=== PATIENT | female | born 1990 | race Caucasian/White ===

== ENCOUNTER → 2017-07-10 23:02 | Observation (INO) ==
[2017-07-10 21:18] VITALS: BP 125/75
[2017-07-10 21:43] LABS: Amphetamine Screen,Urine Negative ng/mL (Cutoff=1000); Barbiturate Screen,Urine Negative ng/mL (Cutoff=200); Benzodiazepines Screen,Urine Negative ng/mL (Cutoff=200); Cannabinoid Screen,Urine Negative ng/mL (Cutoff = 50); Cocaine Screen,Urine Negative ng/mL (Cutoff= 300); Opiate Screen,Urine Negative ng/mL (Cutoff=300); Phencyclidine Screen,Urine Negative ng/mL (Cutoff=25)
--- NOTE | 2017-07-11 07:09 | Discharge Summary ---
Date of Encounter: 07/10/17 Time of Encounter: 22:50 - Discharge Diagnosis (1) 37 weeks gestation of Priority: Primary Status: Acute Comments: Patient admitted for labor evaluation (2) Non-reactive NST (non-stress test) Priority: Secondary Status: Acute Comments: baseline 125 bpm moderate variability +15x15 accels no decels noted. - Discharge Medications Home Medications: Multi Tablet 1 tab PO DAILY 06/09/17 [History] Ranitidine HCl 06/09/17 [History] Allergies/Adverse Reactions: 3 Allergy/AdvReac Type Severity Reaction Status Date / Time No Known Allergies Allergy Verified 08/09/15 15:45 Data Procedures and tests throughout hospitalization: Laboratory Tests 07/10/17 21:19 Urine Opiates Screen Negative Ur Barbiturates Screen Negative Ur Phencyclidine Scrn Negative Ur Amphetamines Screen Negative U Benzodiazepines Scrn Negative Urine Cocaine Screen Negative U Marijuana (THC) Screen Negative Labs on day of discharge: Labs from last 24 hours 07/10/17 21:19 Urine Opiates Screen Negative Ur Barbiturates Screen Negative Ur Phencyclidine Scrn Negative Ur Amphetamines Screen Negative U Benzodiazepines Scrn Negative Urine Cocaine Screen Negative U Marijuana (THC) Screen Negative Date of admission: 07/10/17 20:51 Discharging clinician: Stacie Stafford Anticipated date of discharge: 07/11/17 - Patient Status Disposition: Home, Self-Care Condition: Good - Discharge Instructions Additional Instructions: LABOR AND DELIVERY DISCHARGE INSTRUCTIONS Signs and Symptoms to be Reported to your Doctor Immediately: * Sudden gush, continuous or intermittent lead of fluid from vagina (note the time of gush and color of fluid) * Onset of bright red vaginal bleeding with or without pain (if you had a vaginal exam during this visit you may notice some dark red spotting. This is normal.) * Contractions that are 5 minutes apart (from the beginning of one contraction to the beginning of the next) and last 45-60 seonds; contractions that you can no longer walk, talk or laugh through. * A change in the baby's activity. This could be an increase or decrease in activity. * Severe headache which does not go away with tylenol. * Sudden swelling in the face, hands, arms and/or legs. * Upper abdominal pain - sometimes associated with heartburn or nausea and is not relieved by Maalox, Mylanta or Tums. * Kick Counts __ One hour after a meal, lay down on one side in a quiet place. Count the number of time the baby moves during an hour. 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 Patient was dilated 280/-2. After observation no cervical change was made. Patient was discharged home with reactive nst. Time Attestation: Total time spent providing and/or coordinating discharge services: Time Spent: Less than 30 minutes Exam - Constitutional Vitals: Temp Pulse Resp BP 98.1 F 90 16 125/75 07/10/17 21:07 07/10/17 21:07 07/10/17 21:07 07/10/17 21:07 - Other Additional findings: Patient seen and assessed by RN. - VTE Reasons for not Prescribing Prophylaxis: Treatment not Indicated - Low risk for VTE
== END | disposition home or self-care (01) ==
LOC: 1NENULAB
PROVIDERS: ADMIT Obstetrics & Gynecology; ATTEND Obstetrics & Gynecology

== ENCOUNTER 2017-07-21 07:50 | Inpatient (IN) ==
[2017-07-21] MEDS ORDERED: Metoclopramide 10 MG/2 ML VIAL IVP PRN (08:23)
[2017-07-21] MEDS ORDERED: *HR* Nalbuphine 20 MG/ML AMPUL IVP PRN (08:23)
[2017-07-21] MEDS ORDERED: Naloxone 0.4 MG/ML INJ IVP PRN (08:23)
[2017-07-21] MEDS ORDERED: Famotidine 20 MG/2 ML VIAL IVP PRN (08:23)
[2017-07-21] MEDS ORDERED: miSOPROStol 25 MCG TABLET VG SCH (09:00)
--- NOTE | 2017-07-21 09:02 | OB/GYN History & Physical ---
Addendum entered and electronically signed by Sergio Gar DO 07/21/17 11 :39: Blood Type: A+ Original Note: Date of Encounter: 07/21/17 Time of Encounter: 08:45 Assessment and Plan (1) 39 weeks gestation of Current visit: No Status: Acute (2) Elective induction of labor planned Current visit: No Status: Acute Patient will be admitted for elective induction - IV fluids. - NST assessment. - Cytotec. - Nubain for pain control. History of Present Illness Chief complaint: Inductino of labor HPI: Ms. Mccallum is a 27 year old female at 39 1/7 wks gestation that presents for induction of labor. She admits to good movement. She denies any vaginal fluid leakage or bleeding. She denies contractions, headaches, vision changes, chest pain, nausea, vomiting, fever, chill,s dysuria, or diarrhea. GBS: negative HIV Ag/Ab: non-reactive T. Pallidum Ab: negative Rubella Ab: positive Varicella Ab: positive HepBSAg: Non-reactive (01/15/17) All other labs normal. Past Med Surg Social Fam HX - Past Medical History Medical history: no medical history Psychiatric history: no psych history - Past Surgical History Surgical History: other - Social History Smoking Status: Current every day smoker Packs per day: 1/2 Smokeless Tobacco Status: No Alcohol use: none Drug use: none - Family History Mother History Unknown: Yes Adopted: No Family Member Ethnicity: Non- Living Status: Still Living Hx Family Cardiac Disorders: Yes (HTN) Hx Family Respiratory Disorders: No Hx Family Cancer: No Hx Family GI Disorders: No Hx Family Endocrine Disorder: No Hx Family Neuromuscular Disorders: No Hx Family Neurologic Disorders: No Hx Family HEENT Disorders: No Hx Family Autoimmune Disorders: No Obstetrical History - Pregnancies : 4 Para: 2 Term: 2 : 0 Ab's: 1 Livin Medications and Allergies Multi Tablet 1 tab PO DAILY 06/09/17 [History] Ranitidine HCl 150 mg PO HS 06/09/17 [History] 3 Allergy/AdvReac Type Severity Reaction Status Date / Time No Known Allergies Allergy Verified 08/09/15 15:45 Exam - Constitutional Constitutional: well developed, well nourished, no acute distress, average body habitus - Lungs Respiratory exam: CTAB - Cardiovascular Cardiovascular exam: RRR, +S1, +S2 - Abdomen Abdomen: Present: bowel sounds normal, gravid, non tender - Extremities Extremities exam: full ROM, normal capillary refill, normal inspection, radial pulses palpable and symmetrical Deep Tendon Reflex Grade: 2+ Normal - Cervix Dilation: 2 Effacement: 80 Results Result Diagrams: 07/21/17 08:55 All other labs normal. - VTE Reasons for not Prescribing Prophylaxis: Treatment not Indicated - Low risk for VTE - Attending Attestation Gume Mayorga I examined this patient and my medical decision-making was reviewed with the Resident Physician. I agree with the documented findings, disposition and treatment plan as described except to the extent set forth below.
[2017-07-21] MEDS: Ringers Solution, Lactated 1,000 ML IVC SCH ×2 (09:10→14:05)
[2017-07-21 09:12] LABS: Basophils % 0.4 %; Eosinophils # 0.1 K/mcL (0.0-0.6); Eosinophils % 1.2 %; Hematocrit 35.9 % (35.3-44.9); Hemoglobin 12.2 g/dL (11.5-15.4); Immature Granulocytes % 1.1 % (0-4); Immature Platelets 8.9 % (1.1-6.1); Lymphocytes # 1.1 K/mcL (0.6-4.6); Lymphocytes % 9.7 %; Mean Corpuscular Hemoglobin 29.5 pg (28.0-33.3); Mean Corpuscular Volume 86.9 fL (83.0-100.0); Monocytes # 1.1 K/mcL (0.0-1.3); Monocytes % 9.9 %; Neutrophils # 8.8 K/mcL (1.6-8.9); Platelet Count 199 K/mcL (140-400); Red Blood Count 4.13 M/mcL (3.82-4.97); Red Cell Distribution Width 13.2 % (11.5-14.5); Segmented Neutrophils % 77.7 %
[2017-07-21 09:20] LABS: Amphetamine Screen,Urine Negative ng/mL (Cutoff=1000); Barbiturate Screen,Urine Negative ng/mL (Cutoff=200); Benzodiazepines Screen,Urine Negative ng/mL (Cutoff=200); Cannabinoid Screen,Urine Negative ng/mL (Cutoff = 50); Cocaine Screen,Urine Negative ng/mL (Cutoff= 300); Opiate Screen,Urine Negative ng/mL (Cutoff=300); Phencyclidine Screen,Urine Negative ng/mL (Cutoff=25)
--- NOTE | 2017-07-21 13:09 | Anesthesia Evaluation PreOp ---
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 PICKER History: Denies Any Significant HX Other Medical History: Denies Any Significant HX Anesthesia History: No Prior Anesthetic Complications, Past Anesthesia (right hand, loki[) : Yes (, 39 weeks) Alcohol Use: none Drug use: none Medications and Allergies Multi Tablet 1 tab PO DAILY 06/09/17 [History] Ranitidine HCl 150 mg PO HS 06/09/17 [History] 3 Allergy/AdvReac Type Severity Reaction Status Date / Time No Known Allergies Allergy Verified 08/09/15 15:45 - Meds/Allergy Pre-op Review Medications Reviewed: Yes Allergies Reviewed: Yes Beta Blockers on Current Med List: No Anesthesia Results - Labs 07/21/17 08:55 Anesthesia Exam Height: 64 Weight: 72 - HEENT Pupil (Motor): Pupils equal Mallampati: II Teeth: Normal Oral Opening: Greater than 3 - BEAD PICKER LOC: Oriented BEAD PICKER Motor: Normal RUE, Normal LUE, Normal RLE, Normal LLE, Normal Face BEAD PICKER Sensory: Normal: RUE, LUE, RLE, LLE, Face - Cardiac Rhythm: Regular Murmur: None JVD: No Carotid Bruit: No - Pulmonary Breath Sounds: bilateral Clear Respiratory Effort: Symmetrical Anesthesia Assess/Plan ASA Score: 2 Modified [place] Scale for Level of Consciousness: Cooperative, oriented, and tranquil Anesthetic Plan: Regional Monitoring Plan: Standard Monitors
--- NOTE | 2017-07-21 13:18 | OB Labor Progress Note ---
Date of Encounter: 07/21/17 Time of Encounter: 13:15 Labor Progress Note - Subjective Subjective: Patient is not really feeling the contractions this time not ready for an epidural at this time - Cervix Cervix: 4/80/-2 AROM clear fluid - Heart Tones Heart Tones: heart tones 140s reactive - [place]: Contractions every 2 minutes - Plan Plan: Continue current care and anticipate vaginal delivery
[2017-07-21] MEDS ORDERED: Oxytocin 20 units/ LR 1000 mL 20 UNIT/1,000 ML BAG IVC SCH ×2 (16:00→19:37)
[2017-07-21] MEDS ORDERED: Oxytocin 20 units/ LR 1000 mL 20 UNIT/1,000 ML BAG IVC ONE (16:00)
[2017-07-21] MEDS ORDERED: *HR* FentaNYL (PF) 100 MCG/2 ML VIAL ONE (16:19)
[2017-07-21] MEDS ORDERED: *HR* Ropivacaine/PF 0.2% 10 ML AMPUL ONE (16:19)
[2017-07-21] MEDS ORDERED: Epidural Premix (fent/bupiv) 110 ML EP ONE (16:20)
--- NOTE | 2017-07-21 17:40 | Anesthesia Procedures ---
Date of Encounter: 07/21/17 Time of Encounter: 16:25 Procedures: Anesthesia - Epidural/Spinal Patient ID/Chart reviewed: Yes Patient examined: Yes OB Eval: Contractions: Non-stressed pattern Consent Obtained: Yes Supplemental Oxygen: None/Room Air Site Prep: Aseptic Technique Patient position: upright Local Anesthetic: Lidocaine 1% Amount of Local Anesthetic used: 3 Touhy Needle Gauge: 18 Touhy Needle Depth (cm): 5 Catheter Depth at Skin (cm): 12 Test Dose (1.5% Lido + Epi): Volume given (mls): 3 Test Dose Result: Negative Loading Dose: Fentanyl (mcg): 100 Loading Dose: Other: ropivicaine 0.2% 6cc, nss 2cc Loading Dose Administered: Thru Touhy Needle Catheter Secured in Place: Tegaderm Interspace Used: L3-L4 Loss of Resistance (KARTHIK): Yes Blood: No CSF: No Paresthesia: No
--- NOTE | 2017-07-21 18:05 | OB/GYN Procedure Note ---
Delivery - Delivery Date: 07/21/17 Provider: Rafael Mayorga Intrapartum events: none Delivery induction: sherman, misoprostol Delivery augmentation: rupture of membranes Delivery monitor: external FHT, external uterine Anesthesia: epidural Estimated Blood Loss: 200 - Infant (s) A Delivery Date: 07/21/17 Delivery Time: 17:38 Presentation: vertex Position: SHAI Route of delivery: Gender: Female Viability: Viable Pounds: 7 Ounces: 7 Weight Gram: 3.375 kg at 1 minute: 8 at 5 mins: 9 Shoulder Dystocia: not encountered Specimens collected: cord blood Placenta: spontaneous Cord: 3 umbilical vessels - Repair Laceration Description: Periurethral (right) - Complications Delivery complications: none Delivery comments: Patient is a 27-year-old 4 para 2011 at 39-1/7 weeks who presented for induction of labor secondary to term with favorable cervix. Patient was 2 cm on admission we still placed a Sherman catheter and Cytotec. The patient 's Sherman had fallen out within an hour patient was artificially ruptured when she was 4 cm. Patient progressed appropriately became complete patient finally was completely pushed one time delivering a viable female in right occiput anterior presentation at 1738. There was no nuchal cord, no meconium, was bulb suctioned on the abdomen. Apgars were 8 at 1 minutes, 9 at 5 minutes, infant weight was 7 lbs. 7 oz. Placenta was sent to [facility] with three-vessel cord, national account manager Dr. Mayorga, data entry assistant Dr. Gar PGY1, anesthesia epidural, estimated blood loss 200 mL. Perineum cervix and vagina was visualized she had a right periurethral laceration repaired with 4-0 Vicryl in usual fashion. Cervix and vagina was visualized intact patient be observed one hour before being taken floor.
[2017-07-21] MEDS ORDERED: Acetaminophen 325 MG TABLET PO PRN (19:37)
[2017-07-21] MEDS ORDERED: Measles/Mumps/Rubella Vacc 0.5 ML VIAL SQ PRN (19:37)
[2017-07-21] MEDS ORDERED: Famotidine 20 MG TABLET PO SCH (21:00)
[2017-07-21] MEDS ORDERED: Methylergonovine 0.2 MG/ML AMPUL IM ONE (23:04)
[2017-07-22] MEDS: Ibuprofen 600 MG TABLET PO PRN ×2 (02:37→14:52)
[2017-07-22 06:31] LABS: Basophils # 0.1 K/mcL (0.0-0.2); Basophils % 0.4 %; Eosinophils # 0.1 K/mcL (0.0-0.6); Eosinophils % 0.8 %; Hemoglobin 7.8 g/dL (11.5-15.4); Immature Granulocytes % 1.1 % (0-4); Lymphocytes # 1.5 K/mcL (0.6-4.6); Lymphocytes % 10.7 %; Mean Corpuscular HGB Conc 33.9 g/dL (31.6-35.5); Mean Corpuscular Hemoglobin 29.8 pg (28.0-33.3); Mean Corpuscular Volume 87.8 fL (83.0-100.0); Mean Platelet Volume 11.2 fL (9.4-12.4); Monocytes # 1.5 K/mcL (0.0-1.3); Monocytes % 10.7 %; Neutrophils # 10.4 K/mcL (1.6-8.9); Platelet Count 145 K/mcL (140-400); Red Blood Count 2.62 M/mcL (3.82-4.97); Red Cell Distribution Width 13.1 % (11.5-14.5); Segmented Neutrophils % 76.3 %
[2017-07-22] MEDS ORDERED: miSOPROStol 100 MCG TABLET PO STA (06:43)
--- NOTE | 2017-07-22 07:28 | OB/GYN Progress Note ---
Date of Encounter: 07/22/17 Time of Encounter: 07:15 - Assessment and Plan (1) Status post vaginal delivery Current Visit: Yes Status: Acute (2) anemia Current Visit: Yes Status: Acute Patient was given methergine earlier and was put on pitocin. - Hgb has dropped from 12.2 to 7.8. She is currently asymptomatic. Continue to monitor. - Cytotec 200 mcg. - Pelvic ultrasound. - Increase ferrous sulfate to BID. - NPO diet. Subjective - Subjective Principal diagnosis: S/P vaginal delivery Interval history: When seen today, patient says that her vaginal bleeding has improved. She says the last time she was passing clots was 2-3 am in the morning. Since then she has had light bleeding. She admits to minor abdominal cramping. She currently denies any MAYES or vision changes. She is able to void and ambulate well. She denies any chest pain, shortness of breath, fever, chills, nausea, or vomiting. She is currently bottle feeding her baby. Patient reports: appetite normal, voiding normally, pain well controlled, ambulating normally [place]: doing well, bottle feeding Objective - Latest Vital Signs Latest vital signs: Vital Signs Temp Pulse Resp BP Pulse Ox 07/22/17 03:07 98.6 F 90 18 109/68 98 07/21/17 22:00 97.5 F L 81 16 99/61 98 07/21/17 21:03 97.7 F 86 16 108/70 99 07/21/17 19:53 98.7 F 80 16 113/74 99 Intake and Output 07/21/17 07/21/17 07/22/17 15:59 23:59 07:59 Intake Total 950 / 950 Output Total 200 / 200 700 / 700 Balance 950 / 950 -200 / -200 -700 / -700 Intake: IV Fluids 950 / 950 Lactated Ringers 1,000 ML @ 125 950 / 950 mls/hr IVC .Q8H DANIEL Rx#: [id number] Output: Urine 200 / 200 700 / 700 Other: Weight 72.5 kg - Exam Chest: Normal S1, Normal S2 Extremities: Present: normal. Absent: tenderness, edema Abdomen: Present: normal appearance, soft, tenderness (Minor tendress to deep palpation of lower quadrants. ) Uterus: Present: normal, firm - Labs Labs: Laboratory Results - last 24 hr 07/21/17 07/21/17 07/22/17 08:55 08:55 06:04 WBC 11.4 H 13.7 H RBC 4.13 2.62 L Hgb 12.2 7.8 L D Hct 35.9 23.0 L MCV 86.9 87.8 MCH 29.5 29.8 MCHC 34.0 33.9 RDW 13.2 13.1 Plt Count 199 145 MPV 11.0 11.2 Immature Gran % 1.1 1.1 Seg Neutrophils % 77.7 76.3 Lymphocytes % 9.7 10.7 Monocytes % 9.9 10.7 Eosinophils % 1.2 0.8 Basophils % 0.4 0.4 Neutrophils # 8.8 10.4 H Lymphocytes # 1.1 1.5 Monocytes # 1.1 1.5 H Eosinophils # 0.1 0.1 Basophils # 0.0 0.1 Immature Plt Fraction 8.9 H Urine Opiates Screen Negative Ur Barbiturates Screen Negative Ur Phencyclidine Scrn Negative Ur Amphetamines Screen Negative U Benzodiazepines Scrn Negative Urine Cocaine Screen Negative U Marijuana (THC) Screen Negative Attestation Statement - Attestation Attestation: I examined this patient and my medical decision-making was reviewed with the Resident Physician. I agree with the documented findings, disposition and treatment plan as described. Dede Ramírez CNM
[2017-07-22] MEDS ORDERED: Prenatal Vit/FA 1 EACH TABLET PO SCH (09:00)
[2017-07-22] MEDS ORDERED: PRENATAL MULTI PO SCH (09:00)
--- NOTE | 2017-07-22 10:55 | Anesthesia Evaluation PreOp ---
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: Denies Any Significant HX Other Medical History: Denies Any Significant HX Anesthesia History: No Prior Anesthetic Complications, Past Anesthesia (Hand Surgery, LEEP) : No Alcohol Use: none Drug use: none Medications and Allergies Multi Tablet 1 tab PO DAILY 06/09/17 [History] Ranitidine HCl 150 mg PO HS 06/09/17 [History] 3 Allergy/AdvReac Type Severity Reaction Status Date / Time No Known Allergies Allergy Verified 08/09/15 15:45 - Meds/Allergy Pre-op Review Medications Reviewed: Yes Allergies Reviewed: Yes Beta Blockers on Current Med List: No Anesthesia Results - Labs 07/22/17 06:04 Anesthesia Exam Last Vital Signs Temp 97.9 F 07/22/17 08:05 Pulse 80 07/22/17 08:05 Resp 16 07/22/17 08:05 BP 115/71 07/22/17 08:05 Pulse Ox 99 07/22/17 08:05 Height: 1.63m Weight: 72.5kg NPO (# of Hours): >8hr Pain Scale: 0 Pain Scale Used: Numeric (1 - 10) - HEENT Pupil (Motor): Pupils equal Mallampati: II Teeth: Normal Oral Opening: Greater than 3 - HOUSE CALLS NURSE LOC: Oriented HOUSE CALLS NURSE Motor: Normal RUE, Normal LUE, Normal RLE, Normal LLE, Normal Face HOUSE CALLS NURSE Sensory: Normal: RUE, LUE, RLE, LLE, Face - Cardiac Rhythm: Regular Murmur: None JVD: No Carotid Bruit: No - Pulmonary Breath Sounds: bilateral Clear Respiratory Effort: Symmetrical Anesthesia Assess/Plan ASA Score: 2 Modified [place] Scale for Level of Consciousness: Cooperative, oriented, and tranquil Anesthetic Plan: General Autologous Blood: No Monitoring Plan: Standard Monitors Recovery Plan: PACU
[2017-07-22] MEDS ORDERED: Ringers Solution, Lactated 1,000 ML ONE (11:34)
[2017-07-22] MEDS: Ringers Solution, Lactated 1,000 ML IVC SCH (11:43)
[2017-07-22] MEDS ORDERED: *HR* Propofol 200 MG/20 ML VIAL IVP ONE (12:10)
[2017-07-22] MEDS ORDERED: Ondansetron 4 MG/2 ML VIAL ONE (12:10)
[2017-07-22] MEDS ORDERED: *HR* FentaNYL (PF) 100 MCG/2 ML VIAL ONE (12:10)
[2017-07-22] MEDS ORDERED: Lidocaine -MPF 2% 5 ML VIAL ONE (12:10)
[2017-07-22] MEDS ORDERED: Dexamethasone 4 MG/ML VIAL ONE (12:10)
--- NOTE | 2017-07-22 13:19 | OB/GYN Procedure Note ---
Suction D&C - Diagnosis Date of procedure: 07/22/17 Pre-op diagnosis: other (Retained placenta, hemmorhage with anemia) Post-op diagnosis: same - Procedure Procedure: suction D&C Surgeon: Misael Beyer Anesthesia Type: General Estimated blood loss (cc): 150 Complications: none Fluids: crystalloid Specimen: uterine contents Disposition: PACU Narrative: Patient's 27-year-old female status post vaginal delivery 1730 last evening to experience significant vaginal bleeding with resultant anemia during the night. Currently her bleeding has slowed status post Methergine and Cytotec. She did have ultrasound which did show large mass effect and internal cervical os and thickened endometrium with fluid measuring approximately 8 cm suspicious for possible retained placenta tissue and clot. After discussing with patient options she did desire to proceed with suction dilation and evacuation. She is aware of operative risks and signed appropriate consent. Description of procedure: Patient was taken operating room where general normal anesthesia was administered. She is prepped draped in usual sterile fashion bladder was drained of clear urine. Cervix was grasped with single-tooth tenaculum. There was large amount of clot in the vagina and this was suctioned with 8 mm suction curet. Suction curet was then passed several times long the uterine cavity revealing clot in pinkish tissue suspicious for retained placenta. After passage of the suction curet multiple times gentle sharp curettage was performed with little residual tissue in the uterine hensley felt quite smooth. Suction curet was again passed several times revealing mostly just blood clot. There was minimal bleeding at this point tenaculum was removed uterus was massaged to firm area she was given Methergine 0.2 mg. She was taken to recovery room in stable condition. Then the procedure all sponge counts counts are correct patient was taken recovery in stable condition.
[2017-07-22 16:06] LABS: Hematocrit 23.8 % (35.3-44.9)
--- NOTE | 2017-07-22 16:59 | Anesthesia Evaluation Post Op ---
Date of Encounter: 07/22/17 Time of Encounter: 14:00 - Vital Signs Vital Signs: Vital Signs 07/22/17 13:18 07/22/17 13:33 07/22/17 13:49 Temperature 97.6 F 97.3 F L 98.1 F Pulse Rate 85 69 70 Respiratory Rate 10 11 10 Blood Pressure 107/75 118/61 105/72 O2 Sat by Pulse Oximetry 97 99 99 07/22/17 14:04 07/22/17 14:18 07/22/17 14:30 Temperature 97.8 F 98.0 F 97.9 F Pulse Rate 76 77 81 Respiratory Rate 10 15 16 Blood Pressure 106/68 102/71 106/67 O2 Sat by Pulse Oximetry 99 99 100 07/22/17 15:00 Temperature 98.0 F Pulse Rate 81 Respiratory Rate 16 Blood Pressure 110/68 O2 Sat by Pulse Oximetry 100 - Lungs Lungs: Clear Ascult./Percussion - Airway Airway: Non-obstructed - Cardiovascular Regular Rate - Mental Status Mental Status: Alert & Oriented, Answers Appropriately - Pain Pain Scale: 3 Pain Scale used: Numeric (1 - 10) - Nausea Vomiting Nausea Vomiting: Not Present - Hydration Hydration: Tolerates oral liquids, Ice chips - Discharge PostOp Status: Transfer Patient to floor Attestation: Patient meets criteria for floor transfer. Alert and communicative.
[2017-07-22 17:03] VITALS: BP 114/65
--- NOTE | 2017-07-22 18:54 | Discharge Summary ---
Date of Encounter: 07/22/17 Time of Encounter: 18:53 - Discharge Diagnosis (1) Retained placenta with hemorrhage, condition Priority: Secondary Status: Acute Comments: Doing well s/p suction d&c. Minimal pain or cramping. (2) S/P D&C (status post dilation and curettage) Priority: Secondary Status: Acute (3) anemia Priority: Secondary Status: Acute Comments: Will D/C home on iron. (4) Status post vaginal delivery Priority: Primary Status: Acute Comments: Doing well at present. Appropriate lochia and cramping. No s/sx's of infection. - Discharge Medications Home Medications: Multi Tablet 1 tab PO DAILY 06/09/17 [History] Ranitidine HCl 150 mg PO HS 06/09/17 [History] Allergies/Adverse Reactions: 3 Allergy/AdvReac Type Severity Reaction Status Date / Time No Known Allergies Allergy Verified 08/09/15 15:45 Data Procedures and tests throughout hospitalization: Laboratory Tests 07/21/17 07/21/17 07/22/17 08:55 08:55 06:04 WBC 11.4 H 13.7 H RBC 4.13 2.62 L Hgb 12.2 7.8 L D Hct 35.9 23.0 L MCV 86.9 87.8 MCH 29.5 29.8 MCHC 34.0 33.9 RDW 13.2 13.1 Plt Count 199 145 MPV 11.0 11.2 Immature Gran % 1.1 1.1 Seg Neutrophils % 77.7 76.3 Lymphocytes % 9.7 10.7 Monocytes % 9.9 10.7 Eosinophils % 1.2 0.8 Basophils % 0.4 0.4 Neutrophils # 8.8 10.4 H Lymphocytes # 1.1 1.5 Monocytes # 1.1 1.5 H Eosinophils # 0.1 0.1 Basophils # 0.0 0.1 Immature Plt Fraction 8.9 H Urine Opiates Screen Negative Ur Barbiturates Screen Negative Ur Phencyclidine Scrn Negative Ur Amphetamines Screen Negative U Benzodiazepines Scrn Negative Urine Cocaine Screen Negative U Marijuana (THC) Screen Negative 07/22/17 15:46 WBC RBC Hgb 8.0 L Hct 23.8 L MCV MCH MCHC RDW Plt Count MPV Immature Gran % Seg Neutrophils % Lymphocytes % Monocytes % Eosinophils % Basophils % Neutrophils # Lymphocytes # Monocytes # Eosinophils # Basophils # Immature Plt Fraction Urine Opiates Screen Ur Barbiturates Screen Ur Phencyclidine Scrn Ur Amphetamines Screen U Benzodiazepines Scrn Urine Cocaine Screen U Marijuana (THC) Screen Labs on day of discharge: Labs from last 24 hours 07/22/17 07/22/17 15:46 06:04 WBC 13.7 H RBC 2.62 L Hgb 8.0 L 7.8 L D Hct 23.8 L 23.0 L MCV 87.8 MCH 29.8 MCHC 33.9 RDW 13.1 Plt Count 145 MPV 11.2 Immature Gran % 1.1 Seg Neutrophils % 76.3 Lymphocytes % 10.7 Monocytes % 10.7 Eosinophils % 0.8 Basophils % 0.4 Neutrophils # 10.4 H Lymphocytes # 1.5 Monocytes # 1.5 H Eosinophils # 0.1 Basophils # 0.1 - Impressions ITS Impressions Pelvis Ultrasound 07/22/17 06:44 IMPRESSION: Markedly enlarged heterogeneous endometrium concerning for retained products of conception. There is indeterminate masslike enlargement of the lower uterine segment and cervix. Unremarkable appearance of the left ovary. Nonvisualization of the right ovary. D/ / Kp Sandy MD / Kp Sandy MD Interpreting Provider: Kp Sandy MD 07/22/17 18:52- Doing well, minimal bleeding s/p suction D&E. Desires discharge home. Date of admission: 07/21/17 07:50 Primary care physician: Gardenia Higginbotham CNP Consults: 07/21/17 19:37 Consult to Retail Field Supervisor [CONS] Routine Comment: Vaginal delivery, consult needed - Patient Status Disposition: Home, Self-Care Condition: Good Overall status at discharge: patient is progressing back to baseline - Discharge Instructions Instructions: Vaginal Delivery (DC) - Diet and Activity Activity: increase activity as tolerated Diet: advance to your usual diet Hospital Course QUILL WINDER Time Attestation: Total time spent providing and/or coordinating discharge services: Exam - Constitutional Vitals: Temp Pulse Resp BP Pulse Ox 97.9 F 80 16 114/65 99 07/22/17 16:00 07/22/17 16:00 07/22/17 16:00 07/22/17 16:00 07/22/17 16:00 General appearance IM: A&O X 3 - Respiratory Respiratory exam: Present: CTAB - Cardiovascular Cardiovascular exam IM: Present: RRR - GI/Abdominal GI/Abdominal exam IM: normal bowel sounds - Rectal Rectal exam: deferred - Uterus Position: 2 Fingers Below Umbilicus - Extremities Exam Extremities exam IM: Present: full ROM - Neurological Exam Neurological exam: oriented X3 - VTE Reasons for not Prescribing Prophylaxis: Treatment not Indicated - Low risk for VTE
--- NOTE | 2017-07-22 18:58 | Discharge Summary ---
Outpatient Proc Discharge Plan - Plan Instructions: Vaginal Delivery (DC) Prescriptions: Ibuprofen [Motrin] 600 mg PO Q6HR PRN #40 tablet PRN Reason: Cramping Docusate [Colace] 100 mg PO BID #60 capsule Ferrous Sulfate 325 mg PO BIDWM #60 tablet Home Medications: Multi Tablet 1 tab PO DAILY 06/09/17 [History] Ranitidine HCl 150 mg PO HS 06/09/17 [History] Docusate [Colace] 100 mg PO BID #60 capsule 07/22/17 [Rx] Ferrous Sulfate 325 mg PO BIDWM #60 tablet 07/22/17 [Rx] Ibuprofen [Motrin] 600 mg PO Q6HR PRN #40 tablet 07/22/17 [Rx]
== END 2017-07-22 20:20 | disposition home or self-care (01) | DRG 767 ==
LOC: 1NENULAB 07:50 → 1NENUOBS 19:37
PROVIDERS: ADMIT Obstetrics & Gynecology; ATTEND Obstetrics & Gynecology